=== PATIENT | female | born 1930 | race Caucasian/White ===

== ENCOUNTER 2016-09-05 03:08 | Inpatient (IN) ==
[2016-09-05] MEDS ORDERED: SODIUM CHLORIDE 0.9% 1,000 ML IV STA (03:36)
[2016-09-05] MEDS ORDERED: HYDROmorphone 2 MG/1 ML VIAL IV STA (03:37)
[2016-09-05] MEDS ORDERED: HYDROmorphone 2 MG/1 ML VIAL ONE (03:45)
[2016-09-05] MEDS ORDERED: VANCOMYCIN INJ 1,250 MG in SODIUM CHLORIDE 0.9% 250 ML IV STA (03:48)
[2016-09-05 04:13] LABS: Albumin 3.4 G/DL (3.4-5.0); Bilirubin,Total 0.4 MG/DL (0.2-1.0); Calcium 8.3 MG/DL (8.5-10.1); Osmolality,Calculated 281.4 MOS/KG (273-304); Potassium 3.9 MMOL/L (3.5-5.1); Total Protein 6.5 G/DL (6.4-8.3)
--- NOTE | 2016-09-05 05:07 | Emergency Department Note ---
Cm Herramnn Brittany, am scribing for, and in the presence of, Xiomara Troncoso MD 03:43. Karyna Herramnn Leanne, MD, personally performed the services described in this documentation, ascribed by Fiordaliza Pabon in my presence, and it is both accurate and complete 507 . Arrival - Arrival Chief Complaint: Extremity Problem Stated Complaint: middle finger pain ED Nursing Triage Note: Patient to room via ems. Patient called ems due to right hand pain and swelling around the middle finger. When ems arrived patient was also complaining of chest pain when put on the monitor she was in Afib. Mode of Arrival: Stretcher Limitations: No Limitations Source: Patient, RN Notes Reviewed Time Seen by Provider: 09/05/16 03:36 - History of Present Illness HPI Narrative: Patient is a 86 y/o white female presenting to the ED by EMS with c/o swollen and erythematous right third digit with an onset of this morning. Patient reports that she woke out of her sleep and noticed the swelling and erythema. She has had some associated pain and confirms tenderness to palpation. Pain is worsened by slight movements and bending of the joint. She denies suffering any injuries or insect bites. She has tried Tylenol, but has only had temporary relief of pain. She denies any fever, chills, nausea, or vomiting. Patient reports that she was here 3 weeks ago for dehydration. She has no other complaint/pain. Allergies/Adverse Reactions: Allergies Allergy/AdvReac Type Severity Reaction Status Date / Time No Known Allergies Allergy Verified 09/05/16 03:21 Home Medications: Home Medications Medication Instructions Recorded Confirmed Type Amlodipine Besylate 5 mg PO DAILY 08/05/14 09/05/16 History Aspirin [Ecotrin] 81 mg PO DAILY 08/05/14 09/05/16 History Levothyroxine Tab [Synthroid Tab] 75 mcg PO DAILY@0700 08/05/14 09/05/16 History Donepezil [Aricept] 10 mg PO DAILY 08/18/16 09/05/16 History Rivaroxaban [Xarelto] 15 mg PO DAILY 08/18/16 09/05/16 History dilTIAZem HCl [Cartia XT] 180 mg PO DAILY 08/18/16 09/05/16 History Review of System - Review of System 12 point system: reviewed and no additional remarkable complaints except as stated - Review of System Constitutional: Absent: chills, fever Eyes: Absent: vision change Head/Ears/Nose/Throat: Absent: nasal drainage, sore throat Respiratory: Absent: respiratory distress Cardiovascular: Absent: chest pain, palpitations Gastrointestinal: Absent: abdominal pain, nausea, vomiting, diarrhea, constipation Genitourinary female: Absent: dysuria, frequency, urgency Musculoskeletal: Present: as per HPI, arm pain, joint swelling. Absent: back pain, leg pain, neck pain Skin: Present: as per HPI. Absent: rash Neurological: Absent: headache Psychiatric: Absent: anxiety, depression Hematological/Lymphatic: Absent: easy bleeding, easy bruising Medical,Surgical,& Family Hx - Medical History Cardio: History of: Cardiac Dysrhythmia (atrial fibrillation), Hypertension, Cardiovascular Problems Neurology: No history of: Seizures Endocrine: History of: Dyslipidemia, Thyroid Disorder Respiratory: History of: COPD Gastrointestinal: History of: GERD - Surgical History Abdominal Surgeries: Surgical HX of: Abdominal Surgery (part of intestines removed), Appendectomy, Cholecystectomy Reproductive Surgeries: Surgical HX of;: Hysterectomy Orthopedic Surgeries: Surgical HX of;: Total Knee Replacement (bilateral) - Family History Family History: Reports;: Family Diabetes, Family Heart Disease, Family Hypertension - Social History Smoking Status: Never smoker Frequency of Alcohol Use: None Type of Drug Use: None Exam Vital Signs: Vital Signs Temperature 98.6 F 09/05/16 03:37 Pulse Rate 99 H 09/05/16 03:37 Respiratory Rate 18 09/05/16 03:37 Blood Pressure 126/84 09/05/16 03:37 O2 Sat by Pulse Oximetry 100 09/05/16 03:17 - General General appearance: alert, in no apparent distress - Head Head exam: Present: atraumatic, normocephalic, normal inspection - Eye Eye exam: Present: normal appearance, PERRL, EOMI - ENT ENT exam: Present: normal exam, normal oropharynx - Neck Neck exam: Present: normal inspection, full ROM, trachea midline - Chest Chest inspection: Present: normal inspection, symmetric chest wall rise - Respiratory Respiratory exam: Present: normal lung sounds bilaterally. Absent: rales, rhonchi, wheezes - Cardiovascular Cardiovascular exam: Present: normal rhythm, tachycardia, normal heart sounds. Absent: regular rate, murmur, rubs, gallop - Abdominal Exam Abdominal exam: Present: soft, normal bowel sounds. Absent: distention, tenderness - Extremities Exam Extremities exam: Present: full ROM, tenderness (tender right third digit). Absent: normal inspection (right third digit is swollen and erythematous including the metacarpal joint. No obvious signs of insect bite or wound.) - Back Exam Back exam: Present: normal inspection - Neurological Exam Neurological exam: Present: alert, oriented X3, CN II-XII intact. Absent: motor sensory deficit - Psychiatric Psychiatric exam: Present: normal affect, normal mood - Skin Skin exam: Present: warm, dry, other (right third digit is swollen and erythematous including the metacarpal joint. No obvious signs of insect bite or wound.) Course Course Narrative: iv vancomycin and pain meds. admit. Results - Labs CBC & BMP: 09/05/16 03:31 Lab Results: I have reviewed the patients labs Labs: Laboratory Tests 09/05/16 03:31 Sodium 140 Potassium 3.9 Chloride 106 Carbon Dioxide 25 Anion Gap 12.9 BUN 17 Creatinine 1.10 H GFR Calculation 46 BUN/Creatinine Ratio 15.00 Glucose 114 H Calculated Osmolality 281.4 Calcium 8.3 L Total Bilirubin 0.40 AST 15 ALT 10 L Alkaline Phosphatase 82 C-Reactive Protein 0.85 H Total Protein 6.5 Albumin 3.4 Globulin 3.1 Albumin/Globulin Ratio 1.0 L Laboratory Tests 09/05/16 03:31 ESR Westergren 55 H - EKG EKG results: interpreted by JUNED EKG shows: atrial fibrillation - Impressions rate of 93. no st elevation. Disposition Clinical Impression: Cellulitis Case discussed with: patient Condition: Guarded Additional Instructions: admit to hospitalist.
[2016-09-05] MEDS ORDERED: MORPHINE 2 MG/1 ML SYRINGE IV PRN (05:52)
[2016-09-05] MEDS: DEXTROSE 5% NACL 0.45% 1,000 ML IV SCH ×3 (06:30→20:10)
[2016-09-05] MEDS ORDERED: VANCOMYCIN INJ 1,000 MG in SODIUM CHLORIDE 0.9% 250 ML IV ONE (06:30)
[2016-09-05] MEDS ORDERED: VANCOMYCIN INJ 1,250 MG in SODIUM CHLORIDE 0.9% 250 ML IV ONE (07:00)
[2016-09-05] MEDS: CLINDAMYCIN INJ 600 MG in PREMIX 1 EACH IV SCH ×2 (08:58→14:59)
[2016-09-05] MEDS: amLODIPine 5 MG TABLET PO SCH (09:00)
[2016-09-05] MEDS: DILTIAZEM CD 180 MG CAPSULE PO SCH (09:00)
[2016-09-05] MEDS: LEVOTHYROXINE 75 MCG TABLET PO SCH (09:00)
[2016-09-05] MEDS: DONEPEZIL 10 MG TABLET PO SCH (09:00)
[2016-09-05] MEDS: ASPIRIN EC 81 MG TABLET PO SCH (09:00)
[2016-09-05] MEDS: RIVAROXABAN 15 MG TABLET PO SCH (09:01)
[2016-09-05 09:46] LABS: Basophils % 0.3 % (0.0-0.8); Eosinophils % 0.6 % (0.00-10.9); Hematocrit 31.4 VOL% (35.7-47.0); Hemoglobin 9.9 GM/DL (12.0-16.0); Immature Granulocytes % 0.3 %; Immature Granulocytes Absolute 0.02 #; Lymphocytes # 0.7 10*3/uL (1.4-4.0); Lymphocytes % 10.3 % (21.3-54.2); Mean Corpuscular HGB Conc 31.5 GM/DL (32-36); Mean Corpuscular Hemoglobin 28 PG (27-34); Mean Platelet Volume 10.9 FL (9.6-12.0); Monocytes # 0.7 10*3/uL (0.11-0.8); Monocytes % 9.3 % (1.7-12.7); Neutrophils # 5.5 10*3/uL (1.4-7.4); Neutrophils % 79.2 % (38.7-73.9); Platelet Count 184 T/CUMM (130-400); Red Blood Count 3.53 MC/CUMM (3.8-5.5); Red Cell Distribution Width 14.7 % (9.3-17.3)
--- NOTE | 2016-09-05 09:55 | XRay Report ---
Referring Physician: Xiomara Troncoso Exam: XR hand 2V RT Date: September 05, 2016 at 3:48 AM Reason: Middle finger swelling and numbness Comparison: None Findings: There is mild degenerative change at some of the interphalangeal joints and at the first through third MCP joints. Soft tissue swelling is seen at the third digit. However, no acute fracture, dislocation or osseous destructive process is identified. Impression: There is mild degenerative change at the right hand and soft tissue swelling at the third digit. However, no acute osseous process is identified. PROCEDURE INTERPRETED AT [facility] DEPARTMENT OF RADIOLOGY Final Report Signed by: Dr. Srinivas Dawkins
[2016-09-05 10:48] LABS: Sedimentation Rate-Westergren 57 MM/HR (0-30)
--- NOTE | 2016-09-05 11:40 | EKG Report ---
Stationary ECG Study [facility] Test Date: 09/05/2016 3:25:03 AM Pat Name: DEQUAN MEEKS Department: Room: 539 Gender: F Corporate Sales Trainer: : 1930 Requested by: Xiomara Troncoso Order Number: [id number] Reading MD: SANDRINE PEGUERO Intervals [place] Rate: 93 P: 999 NE: 0 QRS: 120 QRSD: 95 T: 16 QT: 349 QTc: 400 Interpretive Statements ATRIAL FIBRILLATION WITH ABERRANT CONDUCTION OR VENTRICULAR PREMATURE COMPLEXES At 93 bpm POSSIBLE RIGHT VENTRICULAR HYPERTROPHY MODERATE T-WAVE ABNORMALITY, CONSIDER ISCHEMIA Electronically Signed On 09-06-16 16:51:57 CDT by SANDRINE PEGUERO [email or web address]
--- NOTE | 2016-09-05 15:19 | Hospitalist History & Physical ---
Assessment and Plan (1) Finger joint swelling Status: Acute Assessment and plan: Patient is very much sausage appearing, hand xray unremarkable. checking uric acid, ccp, rheumatoid factor and latisha Current Visit: Yes (2) Atrial fibrillation Status: Chronic Current Visit: No (3) Hypertension Status: Chronic Current Visit: No (4) Cellulitis Status: Acute Assessment and plan: Continue clindamycin for now Current Visit: Yes History of Present Illness Chief complaint: hand hurts and swelling History of present illness: 86 y/o WF with atrial fibrillation, htn, hypothyroid and GERD presents with right third finger swelling, redness and pain. She reports that the pain started morning when she woke up. She usually works in her flower garden but has not since symptom onset. It is actually a little better now than it was originally. The pain seems to get better throughout the day and worsens again in the morning. She is unable to bend her finger due to pain. She has never had this problem before. She does not have a history of any type of arthritis. She does have a son with Rheumatoid arthritis. She also reports some BLE edema and neuropathy. Home Medications Medication Instructions Recorded Confirmed Type Amlodipine Besylate 5 mg PO DAILY 08/05/14 09/05/16 History Aspirin [Ecotrin] 81 mg PO DAILY 08/05/14 09/05/16 History Levothyroxine Tab [Synthroid Tab] 75 mcg PO DAILY@0700 08/05/14 09/05/16 History Donepezil [Aricept] 10 mg PO DAILY 08/18/16 09/05/16 History Rivaroxaban [Xarelto] 15 mg PO DAILY 08/18/16 09/05/16 History dilTIAZem HCl [Cartia XT] 180 mg PO DAILY 08/18/16 09/05/16 History hydroCHLOROthiazide 12.5 mg PO DAILY 09/05/16 09/05/16 History [Hydrochlorothiazide] Allergies Allergy/AdvReac Type Severity Reaction Status Date / Time No Known Allergies Allergy Verified 09/05/16 03:21 Medical,Surgical,& Family Hx - Medical History Cardio: History of: Cardiac Dysrhythmia (atrial fibrillation), Hypertension, Cardiovascular Problems Neurology: No history of: Seizures HEENT: History of: HEENT Problems (STATES HAD SINUS CANCER AND HAD SURGERY) Endocrine: History of: Dyslipidemia, Thyroid Disorder Respiratory: History of: COPD Gastrointestinal: History of: GERD Other: History of: Cancer (SINUS) - Surgical History Abdominal Surgeries: Surgical HX of: Abdominal Surgery (part of intestines removed), Appendectomy, Cholecystectomy Reproductive Surgeries: Surgical HX of;: Hysterectomy Orthopedic Surgeries: Surgical HX of;: Orthopedic Surgery (LT WRIST PLATE PLACED AFTER BROKEN), Total Knee Replacement (bilateral) - Family History Family History: Reports;: Family Diabetes, Family Heart Disease, Family Hypertension - Social History Smoking Status: Never smoker Frequency of Alcohol Use: None Type of Drug Use: None - Constitutional Constitutional: Absent: fever(s), headache(s) - EENT Eyes: Absent: blurry vision, diplopia Nose, mouth and throat: Absent: headache(s), sinus pressure - Cardiovascular Cardiovascular: Absent: chest pain with activity, dyspnea on exertion - Respiratory Respiratory: Absent: cough, wheezing - Gastrointestinal Gastrointestinal: Absent: abdominal pain, nausea - Genitourinary Genitourinary: Absent: difficulty urinating, flank pain - Musculoskeletal Musculoskeletal: Present: joint swelling, limited range of motion. Absent: back pain - Neurological Neurological: Absent: abnormal gait, frequent falls - Psychiatric Psychiatric: Absent: anxiety, depression - Endocrine Endocrine: Absent: cold intolerance, heat intolerance - Hematologic/Lymphatic Hematologic/Lymphatic: Absent: easy bleeding, easy bruising Exam - Constitutional Vitals: Period Temp Pulse Resp BP Sys/Fowler Pulse Ox Last 24 Hr 97.6 F-98.0 F 88-89 18-18 114-127/61-70 100-100 General appearance: normal weight - Head Head exam: Present: normocephalic, atraumatic - Eye Eye exam: Present: EOMI Pupils: Present: ANDREA - ENT ENT exam: Present: normal exam - Neck Neck exam: Present: normal inspection - Respiratory Respiratory exam: Present: clear to auscultation bilaterally. Absent: rhonchi, wheezes - Cardiovascular Cardiovascular exam: Present: regular rate and rhythm - GI/Abdominal GI/Abdominal exam: Present: normal bowel sounds, soft. Absent: tenderness, rebound - Extremities Exam Extremities exam: Present: normal inspection - Back Exam Back exam: Present: normal inspection - Neurological Exam Neurological exam: Present: alert, oriented X3 - Psychiatric Psychiatric exam: Present: normal affect, normal mood - Skin Skin exam: Present: warm, intact Results - Labs CBC & BMP: 09/05/16 09:24 09/05/16 03:31 Quality Measures - Stroke Symptom Onset Unknown: No
[2016-09-05 18:13] LABS: Rheumatoid Factor < 15 IU/ML (<15); Uric Acid 3.7 MG/DL (2.6-6.0)
[2016-09-06] MEDS: DEXTROSE 5% NACL 0.45% 1,000 ML IV SCH (02:17)
[2016-09-06] MEDS: LEVOTHYROXINE 75 MCG TABLET PO SCH (06:22)
[2016-09-06 07:44] LABS: Basophils % 0.4 % (0.0-0.8); Eosinophils # 0.1 10*3/uL (0.0-0.87); Eosinophils % 2.2 % (0.00-10.9); Hemoglobin 8.8 GM/DL (12.0-16.0); Immature Granulocytes % 0.4 %; Immature Granulocytes Absolute 0.02 #; Lymphocytes # 1.1 10*3/uL (1.4-4.0); Lymphocytes % 20.6 % (21.3-54.2); Mean Corpuscular HGB Conc 30.3 GM/DL (32-36); Mean Corpuscular Hemoglobin 27 PG (27-34); Mean Corpuscular Volume 89.8 FL (87-102); Mean Platelet Volume 11.1 FL (9.6-12.0); Monocytes # 0.7 10*3/uL (0.11-0.8); Monocytes % 12.8 % (1.7-12.7); Neutrophils # 3.4 10*3/uL (1.4-7.4); Neutrophils % 63.6 % (38.7-73.9); Platelet Count 161 T/CUMM (130-400); Red Blood Count 3.23 MC/CUMM (3.8-5.5); Red Cell Distribution Width 14.8 % (9.3-17.3); White Blood Count 5.4 T/CUMM (4-12)
[2016-09-06 08:14] LABS: Calcium 7.7 MG/DL (8.5-10.1); Magnesium 2.3 MG/DL (1.8-2.4); Osmolality,Calculated 272.8 MOS/KG (273-304); Potassium 3.9 MMOL/L (3.5-5.1)
[2016-09-06] MEDS: DONEPEZIL 10 MG TABLET PO SCH (08:50)
[2016-09-06] MEDS: RIVAROXABAN 15 MG TABLET PO SCH (08:50)
[2016-09-06] MEDS: amLODIPine 5 MG TABLET PO SCH (08:50)
[2016-09-06] MEDS: DILTIAZEM CD 180 MG CAPSULE PO SCH (08:50)
[2016-09-06] MEDS: CLINDAMYCIN INJ 600 MG in PREMIX 1 EACH IV SCH ×2 (08:50)
[2016-09-06] MEDS: ASPIRIN EC 81 MG TABLET PO SCH (08:50)
[2016-09-06] MEDS ORDERED: VANCOMYCIN INJ 1,000 MG in SODIUM CHLORIDE 0.9% 250 ML IV ONE (09:00)
--- NOTE | 2016-09-06 09:26 | Ultrasound Report ---
Exam: Bilateral lower extremity venous Doppler ultrasound Comparison: 08/27/2016 Clinical history: Bilateral lower extremity edema Technique: Duplex scan of the lower extremity veins using B-mode/grayscale scaled imaging and Doppler spectral analysis and color flow. Findings: Major venous structures of the lower extremities demonstrate a normal course and caliber. Normal color-flow study and spectral analysis. There is normal compression and augmentation of bilateral common femoral, superficial femoral and popliteal veins. The proximal bilateral greater saphenous veins appear to be patent. Impression: No evidence to suggest deep venous thrombosis within either lower extremity. Ultrasound images were captured and stored. PROCEDURE INTERPRETED AT [facility] DEPARTMENT OF RADIOLOGY Final Report Signed by: Dr. Olya Mesa
[2016-09-06] MEDS ORDERED: ONDANSETRON 4 MG/2 ML VIAL ONE (10:22)
[2016-09-06] MEDS: ONDANSETRON 4 MG/2 ML VIAL IV PRN (10:27)
[2016-09-06] MEDS ORDERED: PROMETHAZINE INJ 12.5 MG in SODIUM CHLORIDE 0.9% 50 ML IV PRN (11:44)
[2016-09-06] MEDS: PREGABALIN 25 MG CAPSULE PO SCH (13:41)
--- NOTE | 2016-09-06 14:18 | XRay Report ---
XR KUB Indication: Nausea/vomiting Comparison: Abdominal x-ray dated August 18, 2016 Technique: Frontal views of the abdomen Findings: Nonspecific nonobstructive bowel gas pattern. Surgical clips within the right upper quadrant of the abdomen. Presumed pelvic phleboliths. Osseous structures appear grossly unchanged with S-shaped curvature of the spine. IMPRESSION: No acute abnormality demonstrated. PROCEDURE INTERPRETED AT [facility] DEPARTMENT OF RADIOLOGY Final Report Signed by: Dr Emiliano Brothers
--- NOTE | 2016-09-06 14:57 | Hospitalist Progress Note ---
<Kuldeep Hale - Last Filed: 09/06/16 15:23> Assessment and Plan (1) Finger joint swelling Status: Acute Assessment and plan: Swelling has improved today. CCP pending. LATISHA panel negative and uric acid level normal. Pt. may be ready for outpatient management tomorrow. Current Visit: Yes Hospitalist: Subjective Interval history: Pt seen and examined. No acute distress noted. Improvement to swelling in right hand noted. Uric acid is 3.7 and latisha panel is negative. CCP pending. Pt. will likely be discharged within the next day or so. Continue to monitor. Exam - Constitutional Vitals: Period Temp Pulse Resp BP Sys/Fowler Pulse Ox Last 24 Hr 97.0 F-99.6 F 81-97 18-20 106-142/56-75 93-100 General appearance: normal weight, no acute distress - Head Head exam: Present: normal inspection, normocephalic - Eye Eye exam: Present: EOMI Pupils: Present: ANDREA. Absent: fixed - Respiratory Respiratory exam: Present: other (coarse) - Cardiovascular Cardiovascular exam: Present: regular rate and rhythm - GI/Abdominal GI/Abdominal exam: Present: normal bowel sounds, soft. Absent: tenderness - Extremities Exam Extremities exam: Present: normal capillary refill, full ROM. Absent: edema - Neurological Exam Neurological exam: Present: alert, oriented X3 - Psychiatric Psychiatric exam: Present: normal affect, normal mood - Skin Skin exam: Present: normal color, warm, dry Results - Labs CBC & BMP: 09/06/16 04:41 09/06/16 04:41 Lab Results: I have reviewed the past 24 hour labs Quality Measures - Stroke Symptom Onset Unknown: No <Dot Mace - Last Filed: 09/06/16 17:01> Assessment and Plan (1) Finger joint swelling Status: Acute Current Visit: Yes (2) Atrial fibrillation Status: Chronic Current Visit: No (3) Hypertension Status: Chronic Current Visit: No (4) Cellulitis Status: Acute Current Visit: Yes Hospitalist: Subjective Interval history: Patient seen and examined independently of MARYLOU Thayer, agree with assessment and plan as documented. Will change antibiotics to po. Later today with intractable nausea and vomiting not relieved with zofran. KUB ordered. Exam - Constitutional Vitals: Period Temp Pulse Resp BP Sys/Fowler Pulse Ox Last 24 Hr 97.0 F-99.6 F 81-97 18-20 106-142/56-75 93-100 Results - Labs CBC & BMP: 09/06/16 04:41 09/06/16 04:41
--- NOTE | 2016-09-06 17:43 | ECHO Report ---
Ivanna Trinidad Exam Date: 09/06/2016 10:31 Referring Physician: Technologist: Paula Wright RDCS Age: 86 Ht (in): 66 Wt (lb): 152 Gender: F Exam Location: [facility] Echo Indications: Atrial fibrillation, Essential (primary) hypertension, Cellulitis, COPD, Edema, unspecified BP: 105 / 56 HR: 53 Rhythm: Sinus Technical Quality: Fair IMPRESSIONS 1. Left ventricle is normal size with ejection fraction 50-55%. 2. Right ventricle is normal size and systolic function. 3. Right and left atrium are mildly mildly dilated. 4. Aortic valve is tricuspid structure that is sclerotic with mild insufficiency. 5. Mild mitral regurgitation. 6. Mild pulmonic valve regurgitation. 7. Mild tricuspid valve regurgitation. 8. Mildly elevated right-sided pressures. MEASUREMENTS (Male / Female) Normal Values 2D ECHO LV Diastolic Diameter PLAX 4.9 cm 4.2 - 5.9 / 3.9 - 5.3 cm LV Systolic Diameter PLAX 2.6 cm LV Fractional Shortening PLAX 45.8 % IVS Diastolic Thickness 0.9 cm 0.6 - 1.0 / 0.6 - 0.9 cm LVPW Diastolic Thickness 0.9 cm 0.6 - 1.0 / 0.6 - 0.9 cm RV Internal Dim ED PLAX 2.7 cm Aortic Root Diameter 3.2 cm LA Systolic Diameter LX 3.9 cm 3.0 - 4.0 / 2.7 - 3.8 cm DOPPLER TR Peak Velocity 311.0 cm/s TR Peak Gradient 38.7 mmHg FINDINGS Left Ventricle Normal left ventricular cavity size. Normal left ventricular wall thickness. Left ventricular ejection fraction is estimated at 50-55%. Right Ventricle The right ventricle is normal in size and function. Right Atrium Moderately increased right atrial size. Left Atrium Moderately increased left atrial size. Mitral Valve Morphologically normal mitral valve. Mild mitral valve regurgitation. Aortic Valve Aortic valve is tricuspid with sclerosis without stenosis. Mild aortic valve regurgitation. Tricuspid Valve Morphologically normal tricuspid valve. Mild tricuspid valve regurgitation. Tricuspid regurgitation velocities suggest a PAP of 49 mmHg. Pulmonic Valve Morphologically normal pulmonic valve. Mild pulmonary valve regurgitation. Pericardium Normal pericardium without effusion. Aorta Normal ascending aorta dimension. Bo Schultz MD (Electronically Signed) Final Date: 06 Sep 2016 17:42
[2016-09-06] MEDS: DOXYCYCLINE HYCLATE 100 MG CAPSULE PO SCH (20:45)
[2016-09-07] MEDS: LEVOTHYROXINE 75 MCG TABLET PO SCH (06:00)
[2016-09-07] MEDS: DONEPEZIL 10 MG TABLET PO SCH (09:00)
[2016-09-07] MEDS: DOXYCYCLINE HYCLATE 100 MG CAPSULE PO SCH ×2 (09:00→20:16)
[2016-09-07] MEDS: amLODIPine 5 MG TABLET PO SCH (09:00)
[2016-09-07] MEDS: PREGABALIN 25 MG CAPSULE PO SCH (09:00)
[2016-09-07] MEDS: RIVAROXABAN 15 MG TABLET PO SCH (09:00)
[2016-09-07] MEDS: ASPIRIN EC 81 MG TABLET PO SCH (09:00)
[2016-09-07] MEDS: DILTIAZEM CD 180 MG CAPSULE PO SCH (09:00)
[2016-09-07] MEDS: ONDANSETRON 4 MG/2 ML VIAL IV PRN (12:14)
--- NOTE | 2016-09-07 14:08 | Event Note ---
Patient seen on a social visit. She really clinically does not have any overt heart symptomatology or issues. Had a short discussion with the patient and her son.
--- NOTE | 2016-09-07 16:36 | Hospitalist Progress Note ---
Assessment and Plan (1) Polyarticular arthritis Status: Acute Assessment and plan: Patient is still experiencing pain and swelling on her right hand.She complains of bilateral ankle pain and swellings which have improved. There is obvious MCPs and proximal PIPs swelling and pain. Symptoms only started about a week ago This a high suspicion of early seronegative rhematoid arthritis, her son has RA. We will r/o psoriatic arthritis, sarcoid arthropathy,OA,infectious arthritis . RF, BOBBY and uric acid levels-unremarkable. Plan continue with pain management follow anti-CCP antibodies -will get HLA-B27 testing -MRI -Out patient Rheumatology consult -orthopedics to see for possible arthrocentesis -ANGE levels CXR - will start NSAIDs and steroids continue with antibiotics Current Visit: Yes (2) Nausea and vomiting Status: Acute Assessment and plan: will continue anti emetics start PPIS Current Visit: No (3) Hypertension Status: Chronic Assessment and plan: stable Current Visit: No (4) Atrial fibrillation Status: Chronic Assessment and plan: stable Current Visit: No Hospitalist: Subjective Interval history: Patient seen. She was nauseated and had some vomiting. She was still experiencing pain in her right hand and swellings. Exam - Constitutional Vitals: Period Temp Pulse Resp BP Sys/Fowler Pulse Ox Last 24 Hr 97.9 F-98.9 F 66-88 16-18 105-130/52-79 91-93 General appearance: no acute distress - Head Head exam: Present: normal inspection - Respiratory Respiratory exam: Present: clear to auscultation bilaterally - Cardiovascular Cardiovascular exam: Present: regular rate and rhythm - GI/Abdominal GI/Abdominal exam: Present: normal bowel sounds - Extremities Exam Extremities exam: Present: other (right hand swelling and pain) Results - Labs CBC & BMP: 09/06/16 04:41 09/06/16 04:41 Lab Results: I have reviewed the past 24 hour labs Quality Measures - Stroke Symptom Onset Unknown: No
[2016-09-07] MEDS ORDERED: KETOROLAC 15 MG/1 ML VIAL IV PRN (17:02)
--- NOTE | 2016-09-07 18:50 | XRay Report ---
Exam: Chest 2 views Date: September 07, 2016 at 5:34 PM Comparison: Chest one view June 20, 2015 Reason: Polyarthritis Findings: The cardiac silhouette is upper normal in size. There are mild bibasilar opacities, which likely represent atelectasis. Pneumonia is not excluded but is felt less likely. There is also mild bilateral pleural fluid. No pneumothorax is identified. No acute osseous process is seen. Impression: There is mild bibasilar atelectasis and mild bilateral pleural fluid. PROCEDURE INTERPRETED AT [facility] DEPARTMENT OF RADIOLOGY Final Report Signed by: Dr. Srinivas Dawkins
[2016-09-07] MEDS: DICLOFENAC 1% GEL 100 GM TUBE TOP SCH (20:18)
[2016-09-08] MEDS ORDERED: VANCOMYCIN INJ 1,000 MG in SODIUM CHLORIDE 0.9% 250 ML IV ONE (05:00)
[2016-09-08] MEDS: LEVOTHYROXINE 75 MCG TABLET PO SCH (06:14)
[2016-09-08] MEDS: PIPERACILLIN/TAZOBACTAM 3,375 MG in SODIUM CHLORIDE 0.9% 100 ML IV SCH ×3 (06:18→22:11)
[2016-09-08] MEDS: amLODIPine 5 MG TABLET PO SCH (08:04)
[2016-09-08] MEDS: RIVAROXABAN 15 MG TABLET PO SCH (08:04)
[2016-09-08] MEDS: predniSONE 10 MG TABLET PO SCH (08:04)
[2016-09-08] MEDS: DONEPEZIL 10 MG TABLET PO SCH (08:04)
[2016-09-08] MEDS: DILTIAZEM CD 180 MG CAPSULE PO SCH (08:04)
[2016-09-08] MEDS: DOXYCYCLINE HYCLATE 100 MG CAPSULE PO SCH (08:05)
[2016-09-08] MEDS: DICLOFENAC 1% GEL 100 GM TUBE TOP SCH ×3 (08:05→22:10)
[2016-09-08] MEDS: PREGABALIN 25 MG CAPSULE PO SCH (08:05)
[2016-09-08] MEDS: PANTOPRAZOLE 40 MG VIAL IV SCH (08:05)
[2016-09-08] MEDS: ASPIRIN EC 81 MG TABLET PO SCH (08:05)
[2016-09-08] MEDS: ONDANSETRON 4 MG/2 ML VIAL IV PRN (09:58)
--- NOTE | 2016-09-08 11:46 | Gastrointestinal Consult Note ---
Assessment and Plan (1) Nausea and vomiting Status: Acute Assessment and plan: 09/08-recent onset of nausea and vomiting, intractable at times, since admission. No coffee-ground or hematemesis. No epigastric pain. Possible relation association following medication administration of antibiotics/pain medication. Last known EGD 2014. Plan an addendum to followed by Dr. Lucero Current Visit: No History of Present Illness Chief complaint: Nausea, vomiting History of present illness: Ms. Trinidad is a 86 year old female who was admitted to the hospital on 09/05 with complaints of swelling and pain to her hands. Patient's son is at bedside and provides additional information to patient's history. Patient is reported prior to this admission to be fairly active and independent in her daily care. She works outside in her garden and cares for her home and herself. She has a history of peripheral neuropathy, HTN and atrial fibrillation in which she takes Xarelto. Patient was admitted and found to have cellulitis and IV antibiotics were initiated for this as well as p.o. [place]. 2 days ago, patient developed onset of nausea and intractable vomiting at times. Patient signed states that she has had several episodes since onset with active vomiting of bowel stained emesis followed by dry heaving episodes. She denies any epigastric pain associated with this. She denies any coffee-ground or hematemesis. Denies any melena or hematochezia. Denies a prior history of peptic ulcer disease, gastritis. She states that she has been trying to take in some of her diet however has not been able to tolerate very much of this. Patient sign also feels like there is an association between the timing of her nausea and vomiting episodes following administration of her oral [place] and IV antibiotic therapy, with patient having very minimal on her stomach at that time. Patient denies any history of this prior to admission however patient is noted to be hospitalized last year for similar complaints felt to be at that time gastroenteritis.. She has a history of cholecystectomy which was done in 2014 following her last EGD done the same day with only findings of a hiatal hernia. She she denies any NSAID use. Denies any recent weight loss, fever or chills. She does deny any dysphagia or odynophagia. Denies any GERD symptoms. Home Medications Medication Instructions Recorded Confirmed Type Amlodipine Besylate 5 mg PO DAILY 08/05/14 09/05/16 History Aspirin [Ecotrin] 81 mg PO DAILY 08/05/14 09/05/16 History Levothyroxine Tab [Synthroid Tab] 75 mcg PO DAILY@0700 08/05/14 09/05/16 History Donepezil [Aricept] 10 mg PO DAILY 08/18/16 09/05/16 History Rivaroxaban [Xarelto] 15 mg PO DAILY 08/18/16 09/05/16 History dilTIAZem HCl [Cartia XT] 180 mg PO DAILY 08/18/16 09/05/16 History hydroCHLOROthiazide 12.5 mg PO DAILY 09/05/16 09/05/16 History [Hydrochlorothiazide] Allergies Allergy/AdvReac Type Severity Reaction Status Date / Time No Known Allergies Allergy Verified 09/05/16 03:21 Medical,Surgical,& Family Hx - Medical History Cardio: History of: Cardiac Dysrhythmia (atrial fibrillation), Hypertension, Cardiovascular Problems Neurology: No history of: Seizures HEENT: History of: HEENT Problems (STATES HAD SINUS CANCER AND HAD SURGERY) Endocrine: History of: Dyslipidemia, Thyroid Disorder Respiratory: History of: COPD Gastrointestinal: History of: GERD Other: History of: Cancer (SINUS) - Surgical History Abdominal Surgeries: Surgical HX of: Abdominal Surgery (part of intestines removed), Appendectomy, Cholecystectomy Reproductive Surgeries: Surgical HX of;: Hysterectomy Orthopedic Surgeries: Surgical HX of;: Orthopedic Surgery (LT WRIST PLATE PLACED AFTER BROKEN), Total Knee Replacement (bilateral) - Family History Family History: Reports;: Family Diabetes, Family Heart Disease, Family Hypertension - Social History Smoking Status: Never smoker Frequency of Alcohol Use: None Type of Drug Use: None 12 point system: reviewed and no additional remarkable complaints except as stated - Constitutional Constitutional: Present: as per HPI - EENT Eyes: Present: as per HPI Ears: Present: as per HPI Nose, mouth and throat: Present: as per HPI - Cardiovascular Cardiovascular: Present: as per HPI - Respiratory Respiratory: Present: as per HPI - Gastrointestinal Gastrointestinal: Present: as per HPI, nausea, vomiting - Genitourinary Genitourinary: Present: as per HPI - Musculoskeletal Musculoskeletal: Present: as per HPI - Neurological Neurological: Present: as per HPI - Psychiatric Psychiatric: Present: as per HPI - Endocrine Endocrine: Present: as per HPI - Hematologic/Lymphatic Hematologic/Lymphatic: Present: as per HPI Exam - Constitutional Vitals: Period Temp Pulse Resp BP Sys/Fowler Pulse Ox Last 24 Hr 97.9 F-98.8 F 71-93 16-18 92-125/45-62 94-99 General appearance: normal weight, no acute distress - Head Head exam: Present: normal inspection, normocephalic - Eye Eye exam: Present: other (Lids and conjunctive are unremarkable). Absent: scleral icterus - ENT ENT exam: Present: normal exam, normal oropharynx - Neck Neck exam: Present: normal inspection - Respiratory Respiratory exam: Present: clear to auscultation bilaterally. Absent: rales, rhonchi, wheezes - Cardiovascular Cardiovascular exam: Present: regular rate and rhythm. Absent: diastolic murmur , JVD, systolic murmur - GI/Abdominal GI/Abdominal exam: Present: normal bowel sounds, soft. Absent: ascites, distended, mass, organomegaly, tenderness - Extremities Exam Extremities exam: Present: normal inspection, full ROM - Back Exam Back exam: Present: normal inspection - Neurological Exam Neurological exam: Present: alert, oriented X3 - Psychiatric Psychiatric exam: Present: normal affect, normal mood - Skin Skin exam: Present: normal color, warm, dry Results - Labs CBC & BMP: 09/06/16 04:41 09/06/16 04:41 Lab Results: I have reviewed the past 24 hour labs Quality Measures - Stroke Symptom Onset Unknown: No
--- NOTE | 2016-09-08 13:00 | Hospitalist Progress Note ---
Assessment and Plan (1) Polyarticular arthritis Status: Acute Assessment and plan: Patient is still experiencing pain and swelling on her right hand.She complains of bilateral ankle pain and swellings which have improved. There is obvious MCPs and proximal PIPs swelling and pain. Symptoms only started about a week ago This a high suspicion of early seronegative rhematoid arthritis, her son has RA. We will r/o psoriatic arthritis, sarcoid arthropathy,OA,infectious arthritis . RF, CCP-Ab, BOBBY and uric acid levels-unremarkable. CXR-noted Plan continue with pain management, steroids, NSAIDs, IV antibiotics Follow HLA-B27 testing, cultures,ANGE levels -Follow MRI -Out patient Rheumatology consult -orthopedics to see for possible arthrocentesis Current Visit: Yes (2) Nausea and vomiting Status: Acute Assessment and plan: with difficulty swallowing. will continue anti emetics,PPIs, GI has been consulted Current Visit: No (3) Hypertension Status: Chronic Assessment and plan: Borderline -Will hold Norvasc, follow response Current Visit: No (4) Atrial fibrillation Status: Chronic Assessment and plan: stable Current Visit: No (5) Cellulitis Status: Acute Assessment and plan: of the right hand Plan continue IV antibiotics Follow cultures, MRI, ortho consult. Current Visit: Yes Hospitalist: Subjective Interval history: patient seen. She complains of excessive belching, nausea and difficulty swallowing. Right wrist swelling and redness -slowly improving Exam - Constitutional Vitals: Period Temp Pulse Resp BP Sys/Fowler Pulse Ox Last 24 Hr 97.9 F-98.8 F 71-93 16-18 92-125/45-62 94-99 General appearance: no acute distress - Head Head exam: Present: normal inspection - Respiratory Respiratory exam: Present: clear to auscultation bilaterally - Cardiovascular Cardiovascular exam: Present: other (s1 and s2) - GI/Abdominal GI/Abdominal exam: Present: normal bowel sounds - Extremities Exam Extremities exam: Present: other (right wrist swelling, tenderness and redness) - Neurological Exam Neurological exam: Present: alert, oriented X3 Results - Labs CBC & BMP: 09/06/16 04:41 09/06/16 04:41 Lab Results: I have reviewed the past 24 hour labs Quality Measures - Stroke Symptom Onset Unknown: No
--- NOTE | 2016-09-08 16:04 | Magnetic Resonance Report ---
MRI of the right hand Indication: Swelling and pain Technique: Axial sagittal and coronal imaging of the hands performed using multiple sequences both prior to and after contrast. Contrast dose is 13 cc Dotarem Findings: There is soft tissue swelling and edema diffusely throughout the hand. This appears slightly more prominent in the third digit. There is fluid in the flexor tendon sheath both within the digit and extending to the metacarpal level.. There is normal alignment of the bones of the hand. No abnormal osseous marrow signal is seen. The ligaments tendons and muscles otherwise appear within normal limits. There is mild diffuse enhancement of the soft tissues most prominent around the third digit. Impression: Diffuse edema and swelling of the hand but does appear more prominent in the third digit. There is fluid within the tendon sheath of the flexor tendon of the third digit extending to metacarpal level. This could indicate tenosynovitis, possibly infectious. PROCEDURE INTERPRETED AT [facility] DEPARTMENT OF RADIOLOGY Final Report Signed by: Dr. Onel Hubbard
--- NOTE | 2016-09-08 16:56 | XRay Report ---
XR hand 3V BI Indication: Hand pain and swelling Comparison: None available Findings: No evidence of fracture seen. The alignment of the joints appears normal. Mild degenerative changes are present in the distal interphalangeal joints. Irregularity of the ulna styloid process of the left hand is present suggesting previous injury. There is degenerative changes present in this area of the left wrist.. No soft tissue abnormality is seen. 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 PROCEDURE INTERPRETED AT [facility] DEPARTMENT OF RADIOLOGY Final Report Signed by: Dr. Onel Hubbard
--- NOTE | 2016-09-08 18:30 | Orthopedic Consult Note ---
History of Present Illness Chief complaint: cellulitis rt hand, mid finger History of present illness: Ms. Trinidad is a 86 year old female see dictated reports Home Medications Medication Instructions Recorded Confirmed Type Amlodipine Besylate 5 mg PO DAILY 08/05/14 09/05/16 History Aspirin [Ecotrin] 81 mg PO DAILY 08/05/14 09/05/16 History Levothyroxine Tab [Synthroid Tab] 75 mcg PO DAILY@0700 08/05/14 09/05/16 History Donepezil [Aricept] 10 mg PO DAILY 08/18/16 09/05/16 History Rivaroxaban [Xarelto] 15 mg PO DAILY 08/18/16 09/05/16 History dilTIAZem HCl [Cartia XT] 180 mg PO DAILY 08/18/16 09/05/16 History hydroCHLOROthiazide 12.5 mg PO DAILY 09/05/16 09/05/16 History [Hydrochlorothiazide] Allergies Allergy/AdvReac Type Severity Reaction Status Date / Time No Known Allergies Allergy Verified 09/05/16 03:21 Medical,Surgical,& Family Hx - Medical History Cardio: History of: Cardiac Dysrhythmia (atrial fibrillation), Hypertension, Cardiovascular Problems Neurology: No history of: Seizures HEENT: History of: HEENT Problems (STATES HAD SINUS CANCER AND HAD SURGERY) Endocrine: History of: Dyslipidemia, Thyroid Disorder Respiratory: History of: COPD Gastrointestinal: History of: GERD Other: History of: Cancer (SINUS) - Surgical History Abdominal Surgeries: Surgical HX of: Abdominal Surgery (part of intestines removed), Appendectomy, Cholecystectomy Reproductive Surgeries: Surgical HX of;: Hysterectomy Orthopedic Surgeries: Surgical HX of;: Orthopedic Surgery (LT WRIST PLATE PLACED AFTER BROKEN), Total Knee Replacement (bilateral) - Family History Family History: Reports;: Family Diabetes, Family Heart Disease, Family Hypertension - Social History Smoking Status: Never smoker Frequency of Alcohol Use: None Type of Drug Use: None Exam - Constitutional Vitals: Period Temp Pulse Resp BP Sys/Fowler Pulse Ox Last 24 Hr 98.0 F-98.8 F 71-94 16-18 92-125/45-66 93-98 Results - Labs CBC & BMP: 09/06/16 04:41 09/06/16 04:41
--- NOTE | 2016-09-08 23:50 | Consultation ---
DATE OF CONSULT: 09/08/2016 HISTORY: An 86-year-old white female admitted to the medical service for presumed cellulitis about the right hand. She was admitted three days ago and has recently been started on IV antibiotics. I was asked to evaluate regarding the persistence of pain and swelling involving the dorsum of the ri ght hand. MRI was performed earlier today, which raised the suspicion regarding flexor tenosynoviti s. X-rays previously obtained were negative for fracture. Upon initial presentation, blood culture s were obtained and they have come back negative. There is no history of known trauma about the rig ht hand or middle finger. CLINICAL EXAMINATION Confirmed well-developed nourished female. The right hand reveals some diffuse swelling and mild di scomfort with palpation of the dorsum of the hand and mild 1+ pitting edema. There was extension of the soft tissue swelling over the dorsum of the middle finger. The finger itself is somewhat tende r to palpate overlying the PIP joint. There is no tenderness volarly along the flexor tendon sheath or into the mid palm. She is able to actively flex the digits somewhat limited due to the edema. Capillary refill was brisk. The other lesser digits do not appear to be involved. X-RAYS: No acute change. No fractures. MRI as above reading, soft tissue swelling, cellulitis, an d tenosynovitis. IMPRESSION: Cellulitis of the right hand and middle finger. PLAN: I have discussed with the patient that in my impression she does not have a classic signs or symptoms of suppurative flexor tenosynovitis. She has recently been started on IV antibiotics and b y her description that her hand is already better. I will observe and followup tomorrow to confirm that she is improving. I do not see anything to open up at this time. Thank you for your consultation.
[2016-09-09] MEDS: VANCOMYCIN INJ 1,000 MG in SODIUM CHLORIDE 0.9% 250 ML IV SCH (05:06)
[2016-09-09] MEDS: PIPERACILLIN/TAZOBACTAM 3,375 MG in SODIUM CHLORIDE 0.9% 100 ML IV SCH ×3 (07:12→22:13)
[2016-09-09] MEDS: LEVOTHYROXINE 75 MCG TABLET PO SCH (07:21)
[2016-09-09 07:30] LABS: Basophils % 0.3 % (0.0-0.8); Eosinophils % 0.5 % (0.00-10.9); Hematocrit 32.3 VOL% (35.7-47.0); Immature Granulocytes % 0.3 %; Immature Granulocytes Absolute 0.02 #; Lymphocytes # 1.3 10*3/uL (1.4-4.0); Lymphocytes % 19.7 % (21.3-54.2); Mean Corpuscular Hemoglobin 28 PG (27-34); Mean Platelet Volume 10.6 FL (9.6-12.0); Monocytes # 0.6 10*3/uL (0.11-0.8); Monocytes % 8.7 % (1.7-12.7); Neutrophils # 4.7 10*3/uL (1.4-7.4); Neutrophils % 70.5 % (38.7-73.9); Platelet Count 222 T/CUMM (130-400); Red Blood Count 3.59 MC/CUMM (3.8-5.5); Red Cell Distribution Width 14.6 % (9.3-17.3); White Blood Count 6.7 T/CUMM (4-12)
[2016-09-09 08:03] LABS: Calcium 8.5 MG/DL (8.5-10.1); Osmolality,Calculated 281.1 MOS/KG (273-304); Potassium 3.8 MMOL/L (3.5-5.1)
[2016-09-09] MEDS: DILTIAZEM CD 180 MG CAPSULE PO SCH (08:24)
[2016-09-09] MEDS: ASPIRIN EC 81 MG TABLET PO SCH (08:24)
[2016-09-09] MEDS: predniSONE 10 MG TABLET PO SCH (08:24)
[2016-09-09] MEDS: DONEPEZIL 10 MG TABLET PO SCH (08:24)
[2016-09-09] MEDS: RIVAROXABAN 15 MG TABLET PO SCH (08:24)
[2016-09-09] MEDS: PREGABALIN 25 MG CAPSULE PO SCH (08:24)
[2016-09-09] MEDS: PANTOPRAZOLE 40 MG VIAL IV SCH (08:24)
[2016-09-09] MEDS: DICLOFENAC 1% GEL 100 GM TUBE TOP SCH ×3 (08:24→22:16)
--- NOTE | 2016-09-09 08:56 | Gastrointestinal Progress Note ---
Assessment and Plan (1) Nausea and vomiting Status: Acute Assessment and plan: 09/09-No further nausea or vomiting. Tolerating regular diet. Plan and addendum to follow by Dr Lucero. 09/08-recent onset of nausea and vomiting, intractable at times, since admission. No coffee-ground or hematemesis. No epigastric pain. Possible relation association following medication administration of antibiotics/pain medication. Last known EGD 2014. Plan an addendum to followed by Dr. Lucero Current Visit: No Gastroenterology - PN: Subj Interval history: CC: Nausea, vomiting Pt is seen awake and alert sitting up in chair. She states she is feeling much better today. She has had no further nausea or vomiting since yesterday morning. She denies any abdominal pain. She is tolerating a regular diet at present time. Abdomen is soft, nontender. ROS: Denies SOB or chest pain Exam (Progress Note) - Constitutional Vitals: Period Temp Pulse Resp BP Sys/Fowler Pulse Ox Last 24 Hr 97.4 F-98.8 F 70-94 18-20 92-123/45-72 93-98 - Other Additional findings: General appearance: normal weight, no acute distress - Head Head exam: Present: normal inspection, normocephalic - Eye Eye exam: Present: other (Lids and conjunctive are unremarkable). Absent: scleral icterus - ENT ENT exam: Present: normal exam, normal oropharynx - Neck Neck exam: Present: normal inspection - Respiratory Respiratory exam: Present: clear to auscultation bilaterally. Absent: rales, rhonchi, wheezes - Cardiovascular Cardiovascular exam: Present: regular rate and rhythm. Absent: diastolic murmur , JVD, systolic murmur - GI/Abdominal GI/Abdominal exam: Present: normal bowel sounds, soft. Absent: ascites, distended, mass, organomegaly, tenderness - Extremities Exam Extremities exam: Present: normal inspection, full ROM - Back Exam Back exam: Present: normal inspection - Neurological Exam Neurological exam: Present: alert, oriented X3 - Psychiatric Psychiatric exam: Present: normal affect, normal mood - Skin Skin exam: Present: normal color, warm, dry Results - Labs CBC & BMP: 09/09/16 06:46 09/09/16 06:46 Lab Results: I have reviewed the past 24 hour labs
[2016-09-09 11:20] LABS: Angiotensin Converting Enzyme 48 U/L (8 - 53)
--- NOTE | 2016-09-09 14:54 | Hospitalist Progress Note ---
Assessment and Plan (1) Polyarticular arthritis Status: Acute Assessment and plan: 09/07/2016 Patient is still experiencing pain and swelling on her right hand.She complains of bilateral ankle pain and swellings which have improved. There is obvious MCPs and proximal PIPs swelling and pain. Symptoms only started about a week ago This a high suspicion of early seronegative rhematoid arthritis, her son has RA. We will r/o psoriatic arthritis, sarcoid arthropathy,OA,infectious arthritis . RF, CCP-Ab, BOBBY and uric acid levels, ANGE -unremarkable. CXR-noted. BC-negative 09/09/2016 Swelling and pain have improved.MRI report-diffuse edema and swelling-? tenosynovitis, possibly infectious. Appreciates Ortho's input Plan continue with pain management, steroids, NSAIDs, IV antibiotics Follow HLA-B27 testing Out patient Rheumatology consult possible dc in the next day or two Current Visit: Yes (2) Nausea and vomiting Status: Acute Assessment and plan: with difficulty swallowing.Improved. Appreciates GI's input will continue anti emetics prn,PPIs, Current Visit: No (3) Hypertension Status: Chronic Assessment and plan: stable Current Visit: No (4) Atrial fibrillation Status: Chronic Assessment and plan: stable Current Visit: No (5) Cellulitis Status: Acute Assessment and plan: of the right hand-Much improved Plan continue IV antibiotics Current Visit: Yes Hospitalist: Subjective Interval history: Patient states she feels much better.Her hand swelling and pain have reduced.Her GI symptoms have also improved Exam - Constitutional Vitals: Period Temp Pulse Resp BP Sys/Fowler Pulse Ox Last 24 Hr 97.4 F-98.6 F 70-94 18-20 101-123/55-75 93-98 General appearance: no acute distress - Head Head exam: Present: normal inspection - Respiratory Respiratory exam: Present: clear to auscultation bilaterally - Cardiovascular Cardiovascular exam: Present: regular rate and rhythm - GI/Abdominal GI/Abdominal exam: Present: normal bowel sounds - Extremities Exam Extremities exam: Present: other (reduced right hand swelling and redness) Results - Labs CBC & BMP: 09/09/16 06:46 09/09/16 06:46 Lab Results: I have reviewed the past 24 hour labs Quality Measures - Stroke Symptom Onset Unknown: No
--- NOTE | 2016-09-09 16:43 | Event Note ---
Patient seen and a social manner. She is making good progress. She is generally feeling better.
[2016-09-10] MEDS: VANCOMYCIN INJ 1,000 MG in SODIUM CHLORIDE 0.9% 250 ML IV SCH (03:14)
[2016-09-10] MEDS: PIPERACILLIN/TAZOBACTAM 3,375 MG in SODIUM CHLORIDE 0.9% 100 ML IV SCH (05:34)
--- NOTE | 2016-09-10 07:37 | Discharge Summary ---
<AlexiaBrucepatricjulietajanett - Last Filed: 09/10/16 07:44> Hospital Course - Hospital Course Hospital Course: Ms. Trinidad is a 86 y/o WF with atrial fibrillation, htn, hypothyroid and GERD that presented to the ED on with right third finger swelling, redness and pain. She reports that the pain started morning when she woke up. She usually works in her flower garden but has not since symptom onset. Pt. stated that the swelling had actually improved prior to her coming to the ED. She described the pain as improving as the day progresses and worsening again in the morning. Pt. has a history of neuropathy and has a son that has RA. The patient was admitted to the service for a workup. Pt was initially treated with Clindamycin for possible cellulitis. Labs were also obtained to rule out RA and gout. BOBBY, uric acid, ANGE, CCP-Ab and RF were unremarkable as well. Pt was about to be switched to po antibiotics and released for outpatient referrals and studies when she began to experience n/v. GI was consulted. The etiology of her n/v was unknown but presumed to be secondary to the infectious process or medications patient had been taking. GI stated that would observe with no evaluation unless symptoms recurred. Ortho was also consulted. Dr. Bravo 's impression based on XR and MRI of hand was that there was cellulitis present. Pt is to follow up as necessary. Pt is stable today. Swelling has improved and n/v has resolved. Pt. to be discharged. Diagnosis - Discharge Diagnosis (1) Finger joint swelling Status: Acute Discharge Plan - Discharge Data Disposition: Home Health Service - Discharge Medications New Diclofenac 1% Gel [Voltaren 1% Gel] 1 applic TOP TID #7 applic Pregabalin [Lyrica] 25 mg PO DAILY capsule Amoxicillin/Clav Tab [Augmentin Tab] 875 mg PO Q12H #14 tablet HYDROcodone/ACETAMIN 7.5-325 [[place] 7.5-325] 1 tablet PO Q4H PRN #20 tablet PRN Reason: Pain Moderate (4-7) Continue Aspirin [Ecotrin] 81 mg PO DAILY Levothyroxine Tab [Synthroid Tab] 75 mcg PO DAILY@0700 Rivaroxaban [Xarelto] 15 mg PO DAILY dilTIAZem HCl [Cartia XT] 180 mg PO DAILY Donepezil [Aricept] 10 mg PO DAILY Discontinued Amlodipine Besylate 5 mg PO DAILY hydroCHLOROthiazide [Hydrochlorothiazide] 12.5 mg PO DAILY - Follow Up or Referral - Forms/Instructions Instructions: Cellulitis (DC), Osteoarthritis (DC), Swollen Joint (GEN) Exam - Constitutional Vitals: Period Temp Pulse Resp BP Sys/Fowler Pulse Ox Last 24 Hr 97.2 F-98.6 F 70-82 16-18 112-123/55-75 95-98 Discharge Results Procedures and tests throughout hospitalization: Pending Orders 09/07/16 17:49 Angiotensin Converting Enzyme Routine HLA-B27, Blood Routine 09/08/16 05:07 Blood Culture Stat Lyme Disease Serology, S Stat Labs on day of discharge: Labs from last 24 hours 09/07/16 17:49 Angiotensin Convert Enz 48 Preliminary micro results at discharge 09/08/16 05:07 Blood Culture - Preliminary Blood No growth at 1 day 09/08/16 05:07 Blood Culture - Preliminary Blood No growth at 1 day DS: Provider Date of admission: 09/05/16 04:33 Primary care physician: Em Davis M.D. Attending physician on admission: Bo Crum MD Consults: 09/06/16 08:52 Consult to Physical Therapy [CONS] Routine Reason for Physical Therapy: Evaluate and Treat 09/06/16 14:53 Consult to Case Mgmt/Social Srvs [CONS] Routine Reason for Case Mgmt/Social Srvs: Discharge Planning 09/06/16 16:06 Consult to Physician [CONS] Routine Comment: courtesy consult: call in am and let him know Consulting Provider: Bo Schultz Person Notified: Meena Date Notified: 09/07/16 Time Notified: 09:20 09/07/16 16:34 Consult to Physician [CONS] Routine Comment: Consulting Provider: Kal Bravo Jr. Consult to Specialist Group: Orthopedic When should Consulting Provider be notified: In am Person Notified: Dr. Lawrence RONQUILLO Date Notified: 09/08/16 Time Notified: 17:45 09/08/16 09:36 Consult to Case Mgmt/Social Srvs [CONS] Routine Reason for Case Mgmt/Social Srvs: Home Health Consult Comment: at discharge Consult to Physician [CONS] Routine Comment: difficulty swallowing, lots of reflux while eating Consulting Provider: Edwin Lucero Person Notified: ELIDA Date Notified: 09/08/16 Time Notified: 09:59 09/08/16 11:36 Consult to Pharmacy [CONS] Routine Reason for Pharmacy Consult: Dose/Manage Vancomycin Discharging clinician: Kuldeep Hael NP <Coleen Lara - Last Filed: 09/10/16 10:45> Hospital Course - Hospital Course Hospital Course: Patient was treated with IV Zosyn and Vancomycin, her cultures were negative.She also received some po steroids and NSAIDs. Her Norvasc and HCTZ were held due to borderlin bp. Her symptoms improved dramatically and she is ready to be dcd today. She will go on po Augmentin, we will schedule outpatient Rheumatology and she will follow with her PCP in 1week. - Time spent with patient Time with patient DS: Greater than 30 minutes (Time spent: 35mins) Diagnosis - Discharge Diagnosis (1) Polyarticular arthritis Status: Acute (2) Nausea and vomiting Status: Acute (3) Hypertension Status: Chronic (4) Atrial fibrillation Status: Chronic (5) Cellulitis Status: Acute Discharge Plan - Discharge Data Condition at Discharge: Stable Discharge Diet: heart healthy Activity: resume usual activities as tolerated - Forms/Instructions Additional Discharge Instructions: Follow PCP in 1week, outpt Rheumatology consult. Exam - Constitutional General appearance: no acute distress - Head Head exam: Present: normal inspection - Respiratory Respiratory exam: Present: clear to auscultation bilaterally - Cardiovascular Cardiovascular exam: Present: other (s1 and s2) - GI/Abdominal GI/Abdominal exam: Present: normal bowel sounds - Extremities Exam Extremities exam: Present: other (improved redness and swelling of right hand)
[2016-09-10] MEDS: LEVOTHYROXINE 75 MCG TABLET PO SCH (07:42)
--- NOTE | 2016-09-10 07:44 | Orthopedic Progress Note ---
Orthopedics - Subjective Interval history: Hand swelling minimal finger much improved almost full motion. Follow-up as needed Exam - Constitutional Vitals: Period Temp Pulse Resp BP Sys/Fowler Pulse Ox Last 24 Hr 98.1 F-98.6 F 70-82 16-18 112-123/55-75 95-98 Results - Labs CBC & BMP: 09/09/16 06:46 09/09/16 06:46 Quality Measures - Stroke Symptom Onset Unknown: No
[2016-09-10 07:54] VITALS: BP 121/71
[2016-09-10] MEDS: predniSONE 10 MG TABLET PO SCH (09:20)
[2016-09-10] MEDS: RIVAROXABAN 15 MG TABLET PO SCH (09:20)
[2016-09-10] MEDS: DILTIAZEM CD 180 MG CAPSULE PO SCH (09:20)
[2016-09-10] MEDS: ASPIRIN EC 81 MG TABLET PO SCH (09:20)
[2016-09-10] MEDS: PANTOPRAZOLE 40 MG VIAL IV SCH (09:20)
[2016-09-10] MEDS: DONEPEZIL 10 MG TABLET PO SCH (09:20)
[2016-09-10] MEDS: PREGABALIN 25 MG CAPSULE PO SCH (09:21)
[2016-09-10] MEDS: DICLOFENAC 1% GEL 100 GM TUBE TOP SCH (09:22)
[2016-09-10 13:55] LABS: HLA-B27 Result Negative
== END 2016-09-10 12:25 | disposition home health service (06) | DRG 603 ==
LOC: EDBD → EDUNIT# → N.ED 03:08 → SUATTDRO 04:33 → N.EDINP 04:33 → N.5E 05:46
PROVIDERS: ADMIT Student in an Organized Health Care Education/Training Program; ATTEND Internal Medicine

== ENCOUNTER 2017-03-16 06:03 | Inpatient (IN) ==
[2017-03-16] MEDS ORDERED: ASPIRIN 325 MG TABLET PO STA (07:05)
[2017-03-16] MEDS ORDERED: ASPIRIN 325 MG TABLET ONE (07:19)
[2017-03-16 08:08] LABS: Basophils % 0.7 % (0.0-0.8); Eosinophils # 0.2 10*3/uL (0.0-0.87); Eosinophils % 2.7 % (0.00-10.9); Hematocrit 36.7 VOL% (35.7-47.0); Hemoglobin 11.3 GM/DL (12.0-16.0); Immature Granulocytes % 0.4 %; Immature Granulocytes Absolute 0.02 #; Lymphocytes # 1.3 10*3/uL (1.4-4.0); Lymphocytes % 23.4 % (21.3-54.2); Mean Corpuscular HGB Conc 30.8 GM/DL (32-36); Mean Corpuscular Hemoglobin 26 PG (27-34); Mean Corpuscular Volume 85.7 FL (87-102); Mean Platelet Volume 9.9 FL (9.6-12.0); Monocytes # 0.5 10*3/uL (0.11-0.8); Monocytes % 8.7 % (1.7-12.7); Neutrophils # 3.5 10*3/uL (1.4-7.4); Neutrophils % 64.1 % (38.7-73.9); Platelet Count 242 T/CUMM (130-400); Red Blood Count 4.28 MC/CUMM (3.8-5.5); Red Cell Distribution Width 16.9 % (9.3-17.3); White Blood Count 5.5 T/CUMM (4-12)
[2017-03-16 08:38] LABS: Albumin 3.8 G/DL (3.4-5.0); Bilirubin,Total 0.6 MG/DL (0.2-1.0); Calcium 9.4 MG/DL (8.5-10.1); Magnesium 2.6 MG/DL (1.8-2.4); Osmolality,Calculated 280.4 MOS/KG (273-304); Potassium 4.7 MMOL/L (3.5-5.1); Total Protein 7.1 G/DL (6.4-8.3)
[2017-03-16] MEDS ORDERED: MORPHINE 2 MG/1 ML SYRINGE IV PRN (10:26)
[2017-03-16] MEDS ORDERED: MAGNESIUM SULF RIDER 4 GM in PREMIX 1 EACH IV PRN (10:26)
[2017-03-16] MEDS ORDERED: MAGNESIUM SULF RIDER 2 GM in PREMIX 1 EACH IV PRN (10:26)
[2017-03-16] MEDS ORDERED: ONDANSETRON 4 MG/2 ML VIAL IV PRN (10:26)
[2017-03-16] MEDS: SODIUM CHLORIDE 0.9% 1,000 ML IV SCH (12:39)
[2017-03-16] MEDS: CIPROFLOXACIN INJ 400 MG in PREMIX 1 EACH IV SCH (12:42)
[2017-03-16] MEDS ORDERED: INFLUENZA VIRUS VACCINE 0.5 ML SYRINGE IM ONE (12:54)
[2017-03-16 13:12] LABS: Basophils # 0.1 10*3/uL (0.0-0.2); Basophils % 0.9 % (0.0-0.8); Eosinophils # 0.1 10*3/uL (0.0-0.87); Eosinophils % 2.6 % (0.00-10.9); Hematocrit 34.7 VOL% (35.7-47.0); Hemoglobin 10.9 GM/DL (12.0-16.0); Immature Granulocytes % 0.2 %; Immature Granulocytes Absolute 0.01 #; Lymphocytes # 1.5 10*3/uL (1.4-4.0); Lymphocytes % 26.9 % (21.3-54.2); Mean Corpuscular HGB Conc 31.4 GM/DL (32-36); Mean Corpuscular Hemoglobin 27 PG (27-34); Mean Corpuscular Volume 84.6 FL (87-102); Mean Platelet Volume 10.1 FL (9.6-12.0); Monocytes # 0.6 10*3/uL (0.11-0.8); Monocytes % 10.1 % (1.7-12.7); Neutrophils # 3.2 10*3/uL (1.4-7.4); Neutrophils % 59.3 % (38.7-73.9); Platelet Count 227 T/CUMM (130-400); Red Cell Distribution Width 16.8 % (9.3-17.3); White Blood Count 5.4 T/CUMM (4-12)
[2017-03-16 13:50] LABS: Albumin 3.5 G/DL (3.4-5.0); Bilirubin,Total 0.5 MG/DL (0.2-1.0); Calcium 8.8 MG/DL (8.5-10.1); Magnesium 2.4 MG/DL (1.8-2.4); Osmolality,Calculated 279.4 MOS/KG (273-304); Potassium 4.3 MMOL/L (3.5-5.1); Total Protein 6.9 G/DL (6.4-8.3)
[2017-03-16] MEDS: metroNIDAZOLE INJ 500 MG in PREMIX 1 EACH IV SCH ×2 (14:31→21:54)
[2017-03-16] MEDS ORDERED: traMADol 50 MG TABLET PO PRN (15:59)
[2017-03-16] MEDS ORDERED: ACETAMINOPHEN 325 MG TABLET PO PRN (16:01)
[2017-03-16] MEDS ORDERED: AMITRIPTYLINE 10 MG TABLET PO PRN (20:30)
[2017-03-16] MEDS ORDERED: PANTOPRAZOLE 40 MG TABLET PO SCH (21:00)
[2017-03-16] MEDS: RIVAROXABAN 15 MG TABLET PO SCH (21:54)
[2017-03-16] MEDS: ACETAMINOPHEN 325 MG TABLET PO PRN (21:54)
[2017-03-16] MEDS: DONEPEZIL 10 MG TABLET PO SCH (21:54)
[2017-03-17] MEDS: CIPROFLOXACIN INJ 400 MG in PREMIX 1 EACH IV SCH ×3 (00:38→23:12)
[2017-03-17] MEDS: metroNIDAZOLE INJ 500 MG in PREMIX 1 EACH IV SCH ×4 (03:05→21:33)
[2017-03-17] MEDS: SODIUM CHLORIDE 0.9% 1,000 ML IV SCH ×3 (03:15→19:47)
[2017-03-17 05:24] LABS: Hematocrit 32.4 VOL% (35.7-47.0); Hemoglobin 10.1 GM/DL (12.0-16.0); Lymphocytes % 24.2 % (21.3-54.2); Mean Corpuscular HGB Conc 31.2 GM/DL (32-36); Mean Corpuscular Hemoglobin 26 PG (27-34); Mean Corpuscular Volume 84.2 FL (87-102); Mean Platelet Volume 10.4 FL (9.6-12.0); Neutrophils % 61.2 % (38.7-73.9); Platelet Count 208 T/CUMM (130-400); Red Blood Count 3.85 MC/CUMM (3.8-5.5); Red Cell Distribution Width 16.8 % (9.3-17.3); White Blood Count 4.7 T/CUMM (4-12)
[2017-03-17 05:25] LABS: Basophils % 0.8 % (0.0-0.8); Eosinophils # 0.2 10*3/uL (0.0-0.87); Eosinophils % 3.6 % (0.00-10.9); Immature Granulocytes % 0.4 %; Immature Granulocytes Absolute 0.02 #; Lymphocytes # 1.1 10*3/uL (1.4-4.0); Monocytes # 0.5 10*3/uL (0.11-0.8); Monocytes % 9.8 % (1.7-12.7); Neutrophils # 2.9 10*3/uL (1.4-7.4)
[2017-03-17] MEDS ORDERED: LEVOTHYROXINE 75 MCG TABLET PO SCH (06:30)
[2017-03-17 06:42] LABS: Calcium 7.9 MG/DL (8.5-10.1); Free T4 (Free Thyroxine) 0.75 NG/DL (0.76-1.46); Magnesium 2.2 MG/DL (1.8-2.4); Osmolality,Calculated 280.4 MOS/KG (273-304); Potassium 4.2 MMOL/L (3.5-5.1); Thyroid Stimulating Hormone 5.18 uIU/ml (0.358-3.74)
[2017-03-17] MEDS: DILTIAZEM CD 180 MG CAPSULE PO SCH (08:45)
[2017-03-17] MEDS ORDERED: PANTOPRAZOLE 40 MG VIAL IV SCH (09:00)
[2017-03-17] MEDS ORDERED: LEVOTHYROXINE 88 MCG TABLET PO SCH (09:18)
[2017-03-17] MEDS: ACETAMINOPHEN 325 MG TABLET PO PRN (21:30)
[2017-03-17] MEDS: RIVAROXABAN 15 MG TABLET PO SCH (21:31)
[2017-03-17] MEDS: DONEPEZIL 10 MG TABLET PO SCH (21:31)
[2017-03-18] MEDS: metroNIDAZOLE INJ 500 MG in PREMIX 1 EACH IV SCH (03:13)
[2017-03-18 05:06] LABS: Basophils # 0.1 10*3/uL (0.0-0.2); Basophils % 0.8 % (0.0-0.8); Eosinophils # 0.3 10*3/uL (0.0-0.87); Hematocrit 32.9 VOL% (35.7-47.0); Immature Granulocytes % 0.2 %; Immature Granulocytes Absolute 0.01 #; Lymphocytes # 1.6 10*3/uL (1.4-4.0); Lymphocytes % 26.9 % (21.3-54.2); Mean Corpuscular HGB Conc 30.4 GM/DL (32-36); Mean Corpuscular Hemoglobin 26 PG (27-34); Mean Platelet Volume 10.6 FL (9.6-12.0); Monocytes # 0.6 10*3/uL (0.11-0.8); Neutrophils # 3.4 10*3/uL (1.4-7.4); Neutrophils % 57.1 % (38.7-73.9); Platelet Count 238 T/CUMM (130-400); Red Blood Count 3.87 MC/CUMM (3.8-5.5); Red Cell Distribution Width 16.7 % (9.3-17.3)
[2017-03-18 05:35] LABS: Calcium 8.4 MG/DL (8.5-10.1); Magnesium 2.4 MG/DL (1.8-2.4); Osmolality,Calculated 283.3 MOS/KG (273-304); Potassium 4.3 MMOL/L (3.5-5.1)
[2017-03-18] MEDS: DILTIAZEM CD 180 MG CAPSULE PO SCH (08:55)
[2017-03-18] MEDS ORDERED: CIPROFLOXACIN 500 MG TABLET PO SCH (09:00)
[2017-03-18] MEDS ORDERED: PANTOPRAZOLE 40 MG TABLET PO SCH (09:00)
[2017-03-18 11:32] VITALS: BP 134/74
[2017-03-18] MEDS ORDERED: metroNIDAZOLE 500 MG TABLET PO SCH (14:00)
== END 2017-03-18 13:59 | disposition home health service (06) | DRG 544 ==
LOC: EDUNIT# → EDBD → N.ED 06:03 → N.EDINP 09:58 → N.TELEN 12:03
PROVIDERS: ADMIT Family Medicine; ATTEND Family Medicine